=== PATIENT | male | born 1980 | race Caucasian/White ===

== ENCOUNTER 2017-03-17 15:25 | Emergency (ER) | payer SELFPAY ==
[2017-03-17] MEDS ORDERED: FUROSEMIDE INJ/PF 100 MG/10 ML SDV IV ONE (15:41)
[2017-03-17] MEDS ORDERED: IPRATROPIUM/ALBUTEROL 0.5-2.5 MG/3 ML AMPUL NEB ONE ×3 (15:42→23:57)
[2017-03-17] MEDS ORDERED: LIDOCAINE 2% URO-JET 5 ML KIT MM ONE (15:53)
[2017-03-17] MEDS ORDERED: DIAZEPAM INJ 10 MG/2 ML DISP.SYRIN IV ONE (15:55)
--- NOTE | 2017-03-17 16:02 | ER Document Report ---
ED General - General Stated Complaint: CHEST PAIN AND RESPIRATIRY DISTRESS Time seen by provider: 15:46 Mode of Arrival: Medic Information source: Patient, Emergency Med Personnel - [facility] Notes: Patient is a morbidly obese 36-year-old male presents by EMS with difficulty breathing and chest pain. The patient states he weighed 340 pounds in September and has gained over 300 pounds since that time. The patient reports that he was laid off from work in October and started drinking heavily and now is drinking 20 beers per day plus a bottle of wine, and he gets jittery and has DTs when he does not drink. Patient reports no alcohol since last night. Patient has noticed progressive lower extremity swelling over the course of last few weeks which is now progressed up to his lower abdomen. He reports significant scrotal swelling also over the course of the past week. Patient has noted dyspnea on exertion and orthopnea over the course of the last week and has been sleeping propped up. Patient also smokes cigarettes. He's been noncompliant with his medications since October, stating he takes his clonidine, Norvasc and Neurontin irregularly, averaging 2-3 days per week. Today he noticed some gradually progressive chest pain as well as worsening dyspnea. EMS arrived to find his O2 sat at 89%. It took EMS 2 hours to extract the patient out of the house he was staying at. Patient [place] and has been there for the last 3 months, stating this is more temporary housing. He lives with his . EMS gave the patient 5 of Valium, CPAP, supplemental oxygen, 40 of IV Lasix. Patient had complete relief of his chest pain after the Valium and denies chest pain currently. Patient was given 1.5 inches of nitroglycerin paste while in route. Patient has been alert and interactive since that time. Patient states that he normally is able to ambulate without difficulty. He does report some skin breakdown on his inner thighs related to his scrotal swelling progressive over the course of last week. - Related Data Allergies/Adverse Reactions: Penicillins Allergy (Verified 03/17/17 16:53) Past Medical History - General Information source: Patient, Emergency Med Personnel - Social History Smoking Status: Current Every Day Smoker Frequency of alcohol use: Heavy Drug Abuse: None Lives with: Family Family History: Reviewed & Not Pertinent - Past Medical History Cardiac Medical History: Reports: Hx Hypertension Pulmonary Medical History: Reports: None - Immunizations Hx Diphtheria, Pertussis, Tetanus Vaccination: Yes Review of Systems - Review of Systems Notes: REVIEW OF SYSTEMS: CONSTITUTIONAL : Denies fever, chills, or sweats. EENT: Denies eye, ear, throat, or mouth pain or symptoms. Denies nasal or sinus congestion or discharge. Denies throat, tongue, or mouth swelling or difficulty swallowing. CARDIOVASCULAR: Denies palpitations or racing or irregular heart beat. RESPIRATORY: Denies cough, cold, or chest congestion. GASTROINTESTINAL: Denies abdominal pain or distention. Denies nausea, vomiting , or diarrhea. Denies blood in vomitus, stools, or per rectum. Denies black, tarry stools. Denies constipation. GENITOURINARY: Denies difficulty urinating, painful urination, burning, frequency, blood in urine, or discharge. MUSCULOSKELETAL: Denies back or neck pain or stiffness. Denies joint pain or swelling. SKIN: Denies rash, lesions or sores. HEMATOLOGIC : Denies easy bruising or bleeding. LYMPHATIC: Denies swollen, enlarged glands. NEUROLOGICAL: Denies confusion or altered mental status. Denies passing out or loss of consciousness. Denies dizziness or lightheadedness. Denies headache. Denies weakness or paralysis or loss of use of either side. Denies problems with gait or speech. Denies sensory loss, numbness, or tingling. Denies seizures. PSYCHIATRIC: Denies anxiety or stress. Denies depression, suicidal ideation, or homicidal ideation. ALL OTHER SYSTEMS REVIEWED AND NEGATIVE. Dictation was performed using [employer] voice recognition software Physical Exam - Vital signs Vitals: Pulse Ox 95 03/17/17 16:52 - Notes Notes: PHYSICAL EXAMINATION: GENERAL: Well-appearing, well-nourished and in mild respiratory difficulty on CPAP, but the patient is conversant. HEAD: Atraumatic, normocephalic. EYES: Pupils equal round and reactive to light, extraocular movements intact, sclera anicteric, conjunctiva are normal. ENT: Nares patent, oropharynx clear without exudates. Moist mucous membranes. NECK: Normal range of motion, supple without lymphadenopathy. Given morbid obesity, difficult to assess for JVD. LUNGS: Patient is diminished in both bases and has wheezes anteriorly. HEART: Regular rate and rhythm 1/6 systolic ejection murmur over the apex. Difficult to hear appropriate heart sounds. ABDOMEN: Morbidly obese with edema through the mid to upper abdomen which extends around circumferentially. No guarding, no rebound. No masses appreciated. Patient's nontender. Musculoskeletal: Nontender on musculoskeletal exam with significant restricted range of motion due to severe 3+ bilateral lower extremity pretibial edema which extends all the way up the legs and down the feet. No cyanosis. Distal pulses are appreciated. NEUROLOGICAL: Cranial nerves grossly intact. Normal speech, normal gait. Normal sensory, motor exams. PSYCH: Normal mood, normal affect. SKIN: Patient has urinated on himself after Lasix given in route. He does have some stage I borderline stage II breakdown on both inner thighs. No gross cellulitis noted. Genitourinary examination patient has significant scrotal edema, but is overall nontender no cellulitis or suggestion for Charlotte's. Course - Re-evaluation Re-evalutation: 03/17/17 16:05 Patient was given an additional 80 mg of IV Lasix and was given a DuoNeb. Patient reported improvement in his dyspnea and was taken off of CPAP. He was kept on supplemental oxygen at 3 L. Patient showed no obvious evidence for DVTs, but he had already received 5 mg of IV Valium from EMS. Patient was given an additional 5 mg of IV Valium. Patient had 1.5 inches of nitroglycerin paste that was placed by EMS. 03/17/17 16:06 Patient initially agreed to a Womack catheter. Later he stated he was able to urinate on his own and was able to stand up and urinated the bedside without difficulty. He then declined a Womack catheter. Patient had improvement after DuoNeb on repeat exam and there was improved wheezing. 03/17/17 19:05 Patient had a good diuresis, and O2 sats were in the 90s when he had his blood gas performed which was a venous specimen. Given the PCO2 level for the venous specimen and his bedside oxygen saturation in the mid 90s on 2 L of oxygen, the blood gas was not repeated. Chest x-ray was negative for any obvious pneumonia. No gross CHF, and BNP was only minimally elevated. Patient stated he felt somewhat nervous and jittery and was given additional 2 mg of IV Ativan. He denied any hallucinations and vital signs were stable. 03/17/17 22:41 Patient was given additional 2 mg of Ativan as he felt somewhat nervous and jittery. Again there was no hallucinations and vital signs were otherwise stable. O2 sat 91-92% on room air. 03/17/17 22:41 Multiple attempts made at obtaining CT scan to rule out possible pulmonary embolus, but patient was unable to fit through the 28 inch gantry. As we could not rule out possible pulmonary embolus at this facility, call was made to [facility] and I spoke with Dr. Bob Gutierrez, who agreed to accept the patient in transfer. Discussion was undertaken with the patient and his and they were in agreement with transfer. Repeat lung auscultation showed minimal anterior wheezing, repeat DuoNeb was given. Patient still had a minor tremor, but was completely alert and awake. There were no hallucinations. Patient was given an additional 2 mg of IV Ativan. 03/18/17 00:47 - Vital Signs Vital signs: Temp Pulse Resp BP Pulse Ox 14 161/91 H 95 03/17/17 19:00 03/17/17 18:53 03/17/17 19:00 - Laboratory Result Diagrams: 03/17/17 17:48 03/17/17 17:48 Laboratory results interpreted by me: 03/17/17 03/17/17 03/17/17 17:48 17:48 17:48 Hgb 12.5 L RDW 16.7 H D-Dimer Carbonic Acid ABG pCO2 ABG pO2 ABG HCO3 ABG Total CO2 ABG O2 Saturation Chloride 97 L BUN 5 L Glucose 124 H NT-Pro-B Natriuret Pep 259 H TSH 03/17/17 03/17/17 03/18/17 17:48 17:48 00:23 Hgb RDW D-Dimer 1.62 H Carbonic Acid 1.58 H ABG pCO2 52.6 H ABG pO2 39.5 L* ABG HCO3 30.6 H ABG Total CO2 32.2 H ABG O2 Saturation 72.5 L Chloride BUN Glucose NT-Pro-B Natriuret Pep TSH 5.45 H - Diagnostic Test Radiology reviewed: Image reviewed, Reports reviewed - EKG Interpretation by Me EKG shows normal: Sinus rhythm Additional EKG results interpreted by me: 03/17/17 19:30 EKG as interpreted by me showed normal sinus rhythm a rate of 97. There is no gross evidence for acute NE or ischemia identified. There is no old EKG available for comparison. There was minimal T-wave changes appreciated diffusely, possibly accounting for patient's morbid obesity. Critical Care Note - Critical Care Note Total time excluding time spent on procedures (mins): 79 Discharge - Discharge Clinical Impression: COPD with acute exacerbation, Tobacco abuse, Medical non-compliance Morbid obesity Qualifiers: Obesity type: unspecified obesity type Qualified Code(s): E66.01 - Morbid ( severe) obesity due to excess calories Decubitus skin ulcer Qualifiers: Pressure ulcer location: thigh Pressure ulcer stage: stage 1 Laterality: unspecified laterality Qualified Code(s): L89.891 - Pressure ulcer of other site , stage 1 Alcohol withdrawal Qualifiers: Complication of substance-induced condition: uncomplicated Qualified Code(s): F10.230 - Alcohol dependence with withdrawal, uncomplicated Edema Qualifiers: Edema type: unspecified Qualified Code(s): R60.9 - Edema, unspecified Clinical Impression: (Ruled Out): Alcohol withdrawal delirium Condition: Fair Disposition: [facility]
[2017-03-17 18:13] LABS: ABSOLUTE EOSINOPHILS # (AUTO) 0.1 10^3/uL (0.0-0.6); ABSOLUTE LYMPHOCYTES (AUTO) 1.3 10^3/uL (0.5-4.7); ABSOLUTE MONOCYTES (AUTO) 0.7 10^3/uL (0.1-1.4); ABSOLUTE NEUT (AUTO) 4.1 10^3/uL (1.7-8.2); BASOPHILS % (AUTO) 0.6 % (0-2); EOSINOPHILS % (AUTO) 2.3 % (0-6); HEMATOCRIT 38.6 % (37.9-51.0); HEMOGLOBIN 12.5 g/dL (13.5-17.0); HGB HCT DIFFERENCE -1.1; LYMPHOCYTES % (AUTO) 20.2 % (13-45); MEAN CORPUSCULAR HEMOGLOBIN 27.2 pg (27.0-33.4); MEAN CORPUSCULAR HGB CONC 32.3 g/dL (32.0-36.0); MEAN CORPUSCULAR VOLUME 84 fl (80-97); MONOCYTES % (AUTO) 11.6 % (3-13); RED BLOOD COUNT 4.58 10^6/uL (4.35-5.55); RED CELL DISTRIBUTION WIDTH 16.7 % (11.5-14.0); SEGMENTED NEUTROPHILS % (AUTO) 65.3 % (42-78); WHITE BLOOD COUNT 6.2 10^3/uL (4.0-10.5)
[2017-03-17 18:27] LABS: ALANINE AMINOTRANSFERASE 46 U/L (21-72); ALBUMIN 3.9 g/dL (3.5-5.0); ALKALINE PHOSPHATASE 86 U/L (38-126); ANION GAP 15 (5-19); ASPARTATE AMINO TRANSFERASE 54 U/L (17-59); BILIRUBIN,DIRECT 0.4 mg/dL (0.0-0.4); BILIRUBIN,TOTAL 0.9 mg/dL (0.2-1.3); BLOOD UREA NITROGEN 5 mg/dL (7-20); CALCIUM 8.9 mg/dL (8.4-10.2); CARBON DIOXIDE 29 mmol/L (22-30); CHLORIDE 97 mmol/L (98-107); CREATININE RESULT 0.58 mg/dL (0.52-1.25); GLUCOSE 124 mg/dL (75-110); MAGNESIUM 1.7 mg/dL (1.6-2.3); POTASSIUM 3.9 mmol/L (3.6-5.0); SODIUM 140.7 mmol/L (137-145)
[2017-03-17 18:30] LABS: ARTERIAL BLOOD BASE EXCESS 4.1 mmol/L; ARTERIAL BLOOD O2 SATURATION 72.5 % (94-98)
[2017-03-17] MEDS ORDERED: LORAZEPAM INJ 2 MG/1 ML VIAL IV ONE ×3 (18:37→23:57)
[2017-03-17 18:39] LABS: TROPONIN I < 0.012 ng/mL
[2017-03-17 18:58] LABS: THYROID STIMULATING HORMONE 5.45 uIU/mL (0.47-4.68)
[2017-03-17] MEDS ORDERED: METHYLPREDNISOLONE INJ 125 MG/2 ML SDV IV ONE (19:02)
[2017-03-17 20:44] LABS: APPEARANCE,URINE CLEAR; BILIRUBIN,URINE NEGATIVE (NEGATIVE); GLUCOSE, URINE NEGATIVE (NEGATIVE); KETONES,URINE NEGATIVE (NEGATIVE); LEUKOCYTE ESTERASE,URINE NEGATIVE (NEGATIVE); NITRITE,URINE NEGATIVE (NEGATIVE); PROTEIN,URINE NEGATIVE (NEGATIVE); URINE SPECIFIC GRAVITY 1.004; UROBILINOGEN,URINE NEGATIVE mg/dL (<2.0)
[2017-03-17] MEDS ORDERED: MORPHINE SULFATE 10 MG/ML INJ IV ONE (21:45)
[2017-03-18 03:26] VITALS: BP 166/87
[2017-03-18] MEDS ORDERED: LORAZEPAM INJ 2 MG/1 ML VIAL IV ONE (03:35)
[2017-03-18] MEDS ORDERED: LORAZEPAM INJ 2 MG/1 ML VIAL ONE (03:37)
--- NOTE | 2017-03-18 09:34 | EKG REPORT ---
SEVERITY:- BORDERLINE ECG - SINUS RHYTHM BORDERLINE INFERIOR Q WAVES BORDERLINE T ABNORMALITIES, DIFFUSE LEADS : Confirmed by: Jensen Wolfe 18-Mar-2017 09:33:43
== END 2017-03-18 03:58 | disposition short-term general hospital (02) ==
LOC: ER 15:25
DX: J44.1 Chronic obstructive pulmonary disease with (acute) exacerbation (principal); F17.200 Nicotine dependence, unspecified, uncomplicated; Z91.14 Patient's other noncompliance with medication regimen; E66.01 Morbid (severe) obesity due to excess calories; L89.891 Pressure ulcer of other site, stage 1; F10.230 Alcohol dependence with withdrawal, uncomplicated; R60.9 Edema, unspecified; R07.9 Chest pain, unspecified; R06.02 Shortness of breath
CPT/HCPCS: 93005; 96376; 94640 ×2; 99291; 99292; 96374; 96375; 36415; 84439; 80307; 82803; 83735; 84443; 85025; 80053; 81001; 84484; 85379; 83880; 71010; 93010; J3360; J1940; J2930; J2270; J2060 ×2; J7620 ×2